=== PATIENT | female | born 2000 | race Caucasian/White ===

== ENCOUNTER 2023-06-24 17:25 | Emergency (ER) | payer MEDICAID, OTHER, SELFPAY ==
[2023-06-24 17:27] VITALS: BP 124/77; BMI 22.5
[2023-06-24 18:13] LABS: COVID-19 Antigen Negative (Negative)
--- NOTE | 2023-06-24 18:58 | ED.GENMED ---
History of Present Illness
General
Chief Complaint: Cold/Flu/URI Symptoms
Time Seen by Provider: 06/24/23 18:41
Travel History
Have you had any contact with someone who has COVID-19?: No
Do you have any symptoms of coronavirus? Fever > 100 degrees, chills, cough, shortness of breath, sore throat, loss of taste or smell, muscle aches, or headache?: No
History of Present Illness
History of Present Illness:
22-year-old female presents to the emergency department for evaluation of fever, body aches, nasal congestion, and shortness of breath/chest tightness beginning last night. Denies any nausea, vomiting, or diarrhea. No ill contacts at home. Has no
history of lung disease, denies tobacco use or vaping.
Past History
Past History
ED Past Medical History: None
ED Past Surgical History: Other (teeth)
Social History
Tobacco: Smoker
Alcohol: Occasional
Personal: Single
Employment: Student
Review of Systems
Review of Systems
Allergies reviewed?: Yes
All Other Systems: ROS reviewed and negative except as documented in HPI and ROS
Phy Exam
Physical Exam
Physical Exam:
GEN: Well appearing, NAD, WDWN
HEENT: Oral mucosa moist, no scleral icterus, TMs clear bilaterally with no erythema
Cardiac: Regular rate and rhythm, no murmurs
Lung: No respiratory distress, no tachypnea, lungs clear to auscultation bilaterally
MSK: No gross deformity or injuries
Skin: Good color, no pallor or jaundice, no rashes
Neuro: AO x3, moves all extremities freely
Psych: Calm, cooperative
Course
Orders/Labs/Results
Orders:
Orders
06/24/23 17:53
COVID-19 Antigen Urgent
Source: Nasal Swab
Influenza A+B Rapid Molecular Urgent
[facility] Source: Nasal Swab
Specimen Description:
Vital Signs
Initial and Last Documented VS:
Initial Vital Signs
Temp Pulse Resp BP Pulse Ox
99.2 F 98 16 124/77 97
06/24/23 17:27 06/24/23 17:27 06/24/23 17:27 06/24/23 17:27 06/24/23 17:27
Last Documented Vital Signs
Temp Pulse Resp BP Pulse Ox
99.2 F 98 16 124/77 97
06/24/23 17:27 06/24/23 17:27 06/24/23 17:27 06/24/23 17:27 06/24/23 17:27
MDM/Problems Addressed
MDM/Problems Addressed:
Patient is clinically well-appearing with normal vital signs. Lungs are clear, no indication for imaging. She is positive for influenza B. Discussed supportive care and return parameters. No indication for antivirals as she is not high risk for
prolonged disease
*Critical Care Note
Total Time (30-74mins, 75-104mins- exclusive of procedures): Not Applicable
ED Attending Note
-
Portions of this chart may have been created with voice recognition software.� Occasional wrong word or��sound alike� substitutions may have occurred due to the inherent limitations of voice recognition software.
Discharge Plan
Departure
Patient Disposition: Home (Routine Discharge)
Date of Disposition: 06/24/23
Time of Disposition: 18:59
Patient with high blood pressure during this ER visit?: No
Discharge Problem:
Influenza
Instructions: Flu, Adult (DC)
Prescriptions:
No Action
valacyclovir [Valtrex] 1 gram tablet
1,000 mg PO TID Qty: 21 0RF
acyclovir 5 % ointment
1 applic topical 6XD 7 Days Qty: 15 0RF
amoxicillin 500 mg capsule
500 mg PO TID Qty: 30 0RF
cefdinir 300 mg capsule
300 mg PO BID Qty: 14 0RF
amoxicillin-pot clavulanate 875-125 mg tablet
1 tab PO BID Qty: 14 0RF
Referrals:
NONE,* [Family Provider] -
Interventions
Interventions:
*Risk Screen - Suicide Last Done: 06/24/23 17:27
*General Assessment Last Done: 06/24/23 17:56
*Neglect/Abuse Screening Last Done: 06/24/23 17:27
ED- Fall Risk Assessment Last Done: 06/24/23 19:00
*ED COVID-19 Vaccine History Last Done: 06/24/23 17:27
*Nursing Disposition Last Done: 06/24/23 19:00
ED- Pulmonary Assessment Last Done: 06/24/23 17:56
Discharge Date and Time
Discharge Date/Time: 06/24/23 19:03
== END 2023-06-24 19:03 | disposition home or self-care (01) ==
LOC: EMR 17:25
PROVIDERS: EMERGENCY PHYSICIAN Emergency Medicine
DX: J10.1 Influenza due to other identified influenza virus with other respiratory manifestations (principal); F17.200 Nicotine dependence, unspecified, uncomplicated; Z11.52 Encounter for screening for COVID-19
CPT/HCPCS: 99282; 87502; 87811

== ENCOUNTER 2023-10-01 19:43 | Emergency (ER) | payer MEDICAID, OTHER, SELFPAY ==
[2023-10-01 19:45] VITALS: BP 120/74
[2023-10-01 20:02] LABS: Hematocrit 36.8 % (37.0-47.0); Hemoglobin 12.6 g/dL (12.0-16.0); Mean Corp Hgb Conc. 34.2 g/dL (33.0-37.0); Mean Corpuscular Hgb 30.6 pg (27.0-31.0); Mean Corpuscular Volume 89.3 fL (81.0-99.0); Mean Platelet Volume 9.4 fL (7.4-10.4); Platelet Count 340 10^3/uL (130-400); Red Blood Cell Count 4.12 10^6/uL (4.20-5.40); White Blood Cell Count 10.1 10^3/uL (4.8-10.8)
[2023-10-01 20:03] LABS: Urine Albumin Trace (Neg - Trace); Urine Bilirubin Negative (Negative); Urine Character Slightly Cloudy (Clear); Urine Color Yellow; Urine Glucose Negative (Negative); Urine Ketone Negative (Negative); Urine Leukocyte 2+ (Negative); Urine Nitrite Negative (Negative); Urine Occult Blood 2+ (Negative); Urine Urobilinogen Negative (Neg - 1+)
[2023-10-01 20:10] LABS: Urine Squamous Cell >30 /LPF (Few)
[2023-10-01 20:11] LABS: Urine Red Blood Cell None Seen /HPF (0-2); Urine White Cell 26-30 /HPF (0-5)
[2023-10-01 20:12] LABS: Urine Bacteria Few (Negative)
[2023-10-01 20:18] LABS: HCG, Serum Qualitative Screen Negative
[2023-10-01 20:20] LABS: Blood Urea Nitrogen 14 mg/dl (7-17); Carbon Dioxide 29 mmol/L (22-30); Chloride 101 mmol/L (98-107); Glucose 128 mg/dl (70-99); Potassium 4.1 mmol/L (3.5-5.1); Sodium 139 mmol/L (135-145); eGFR > 60.00
--- NOTE | 2023-10-01 21:31 | ED.GENMED ---
History of Present Illness
General
Chief Complaint: Urinary Symptoms
Source: patient
Exam Limitations: none
Time Seen by Provider: 10/01/23 20:17
Nursing documentation reviewed up to this point in time: agreed with
Travel History
Have you had any contact with someone who has COVID-19?: No
Do you have any symptoms of coronavirus? Fever > 100 degrees, chills, cough, shortness of breath, sore throat, loss of taste or smell, muscle aches, or headache?: No
History of Present Illness
History of Present Illness:
Patient presents to ED secondary to sudden onset of dysuria, hematuria, and right back pain, along with vaginal discharge, starting this morning. Patient states that her symptoms are similar to previous history of urinary tract infection as well as
bacterial vaginosis. Patient is currently sexually active with use of protection. Denies fever or chills. Denies abdominal pain. Denies nausea or vomiting. Denies previous history of STDs.
Past History
Past History
ED Past Medical History: None
ED Past Surgical History: Other (teeth)
Social History
Tobacco: Smoker
Alcohol: Occasional
Personal: Single
Employment: Student
Review of Systems
Review of Systems
Allergies reviewed?: Yes
All Other Systems: ROS reviewed and negative except as documented in HPI and ROS
Constitutional: Reports no symptoms; Denies fever or chills
ABD/GI: Reports no symptoms; Denies abdominal pain, nausea or vomiting
: Reports dysuria, frequency and bleeding
Musculoskeletal: Reports no symptoms
Skin: Reports no symptoms
Neurological: Reports no symptoms
Phy Exam
Physical Exam
Physical Exam:
Physical Exam
General: no apparent distress, not acutely ill. afebrile
Head: nc/at. eomi
Neck: supple. no meningeal signs.
Abdomen: normal bowel sounds. not tender.
: (ANDREW Harper, at bedside): copious thick, white discharge.
Neuro: alert and oriented. no focal neurological deficits
Skin: no rash
Psychiatric: well kept. interactive and cooperative
Extremities: no edema. no calf tenderness.
Course
Orders/Labs/Results
Orders:
Orders
10/01/23 19:47
Test Result ONCE
10/01/23 19:55
BMP [Basic Metabolic Panel] Urgent
Complete Blood Count/No Diff Urgent
HCG, Serum Qualitative Screen Urgent
Urinalysis Urgent
Date Specimen was Collected: 10/01/23
Time Specimen was Collected: 19:47
Urine Microscopic Urgent
Date Specimen was Collected: 10/01/23
Time Specimen was Collected: 19:47
10/01/23 21:37
Cefdinir [Omnicef] 300 mg PO NOW STA
MetroNIDAZOLE [Flagyl] 500 mg PO NOW STA
10/01/23 21:38
Chlamydia/GC by PCR Urgent
[facility] Source: Endo-Cervical
Specimen Description:
Source:: CERVIX
Date Specimen was Collected: 10/01/23
Time Specimen was Collected: 21:12
Abnormal Lab Results
10/01/23
19:55
RBC 4.12 L 10^6/uL
(4.20-5.40)
Hct 36.8 L %
(37.0-47.0)
Glucose 128 H mg/dl
(70-99)
Urine Occult Blood 2+ A
(Negative)
Ur Leukocyte Esterase 2+ A
(Negative)
Urine WBC 26-30 A /HPF
(0-5)
Urine Bacteria Few A
(Negative)
10/01/23 19:55
10/01/23 19:55
Vital Signs
Initial and Last Documented VS:
Initial Vital Signs
Temp Pulse Resp BP Pulse Ox
98.2 F 102 20 120/74 98
10/01/23 19:45 10/01/23 19:45 10/01/23 19:45 10/01/23 19:45 10/01/23 19:45
Last Documented Vital Signs
Temp Pulse Resp BP Pulse Ox
98.2 F 102 20 120/74 98
10/01/23 19:45 10/01/23 19:45 10/01/23 19:45 10/01/23 19:45 10/01/23 19:45
MDM/Problems Addressed
MDM/Problems Addressed:
History and exam along with urinalysis consistent with UTI with potential component of bacterial vaginosis. Patient will be treated with Omnicef and Flagyl, along with recommended to follow-up with [facility] for reevaluation.
GC chlamydia pending.
*Critical Care Note
Total Time (30-74mins, 75-104mins- exclusive of procedures): Not Applicable
ED Attending Note
-
Portions of this chart may have been created with voice recognition software.� Occasional wrong word or��sound alike� substitutions may have occurred due to the inherent limitations of voice recognition software.
Discharge Plan
Departure
Patient Disposition: Home (Routine Discharge)
Date of Disposition: 10/01/23
Time of Disposition: 21:38
Patient with high blood pressure during this ER visit?: No
Condition: Good
Discharge Problem:
UTI (urinary tract infection)
Instructions: Urinary Tract Infection, Adult (DC)
Prescriptions:
New
cefdinir 300 mg capsule
300 mg PO BID Qty: 13 0RF
metronidazole 500 mg tablet
500 mg PO BID Qty: 13 0RF
No Action
valacyclovir [Valtrex] 1 gram tablet
1,000 mg PO TID Qty: 21 0RF
acyclovir 5 % ointment
1 applic topical 6XD 7 Days Qty: 15 0RF
amoxicillin 500 mg capsule
500 mg PO TID Qty: 30 0RF
cefdinir 300 mg capsule
300 mg PO BID Qty: 14 0RF
amoxicillin-pot clavulanate 875-125 mg tablet
1 tab PO BID Qty: 14 0RF
Referrals:
NONE,* [Family Provider] -
Activity Restrictions/Additional Instructions:
As discussed, please follow-up with your primary care physician and/or [facility] physician for further evaluation and treatment. Your prescriptions have been sent electronically to [facility] pharmacy in [place].
Interventions
Interventions:
*Risk Screen - Suicide Last Done: 10/01/23 19:45
*General Assessment Last Done: 10/01/23 21:44
*Neglect/Abuse Screening Last Done: 10/01/23 19:45
ED- Fall Risk Assessment Last Done: 10/01/23 21:44
*ED COVID-19 Vaccine History Last Done: 10/01/23 21:44
*Nursing Disposition Last Done: 10/01/23 21:44
ED-Female Genitourinary Assessment Last Done: 10/01/23 21:02
Discharge Date and Time
Discharge Date/Time: 10/01/23 21:45
Print Language: SAMI
[2023-10-01] MEDS: FLAGYL 500 MG PO (21:43)
[2023-10-01] MEDS: OMNICEF 300 MG PO (21:43)
== END 2023-10-01 21:45 | disposition home or self-care (01) ==
LOC: EMR 19:43
PROVIDERS: EMERGENCY PHYSICIAN Emergency Medicine
DX: N39.0 Urinary tract infection, site not specified (principal); N89.8 Other specified noninflammatory disorders of vagina; M54.50 Low back pain, unspecified; Z87.440 Personal history of urinary (tract) infections; F17.200 Nicotine dependence, unspecified, uncomplicated
CPT/HCPCS: 99283; 80048; 81003; 81015; 84703; 85027; 87491; 87591